=== PATIENT | female | born 1965 | race Caucasian/White ===

== ENCOUNTER 2018-06-05 06:06 | Emergency (ER) | END 2018-06-05 07:19 | disposition home or self-care (01) ==

== ENCOUNTER 2018-07-12 20:33 | Emergency (ER) | END 2018-07-12 23:23 | disposition home or self-care (01) ==

== ENCOUNTER 2018-10-05 03:22 | Emergency (ER) | END 2018-10-05 04:53 | disposition home or self-care (01) ==